=== PATIENT | female | born 1940 | race Caucasian/White ===

== ENCOUNTER 2018-01-12 12:04 | Inpatient (IN) | payer MEDICARE ==
[~2018-01-12] VITALS: Ht 154.9 cm; Wt 77.1 kg
[~2018-01-12 12:04] MED LIST: ALEN70TA47 PO; CLOP75TA14 PO; FERR324T10 PO; HYDR-2132 PO; LEVO100 PO; METF500T6 PO; METO-408 PO; OMEP20CA10 PO; PRAV10TA39 PO; TYLENOL ARTHRITIS PO; VERA240SR PO
[2018-01-12 12:48] LABS: BASOPHILS % (AUTO) 0.8 % (0.0-5.0); EOSINOPHILS % (AUTO) 2.2 % (0.0-8.0); HEMATOCRIT 25.3 % (36-48); LYMPHOCYTES % (AUTO) 23.3 % (21.0-51.0); MEAN CORPUSCULAR HEMOGLOBIN 28.9 pg (27.0-33.0); MEAN CORPUSCULAR VOLUME 84.8 fL (79-99); MONOCYTES % (AUTO) 9.8 % (3.0-13.0); NEUTROPHILS % (AUTO) 63.9 % (40.0-77.0); NUCLEATED RED BLOOD CELLS 0.1 % (0.0-0.19); PLATELET COUNT (AUTO) 335 K/uL (130-400); RED BLOOD CELL COUNT(AUTO) 2.98 MIL/uL (4.00-5.50); RED CELL DISTRIBUTION WIDTH 14.8 % (11.0-15.5); WHITE BLOOD COUNT (AUTO) 8.6 K/uL (4.8-10.8)
[2018-01-12 12:57] LABS: INR 0.98 (0.85-1.15); PARTIAL THROMBOPLASTIN TIME 22.2 SEC (26.3-35.5); PROTHROMBIN TIME 10.3 SEC (9.6-11.6)
[2018-01-12 12:58] LABS: CREATININE 0.7 mg/dL (0.5-1.5); POTASSIUM 4.7 mmol/L (3.5-5.1)
[2018-01-12 13:04] LABS: ALBUMIN 3.4 g/dL (3.5-5.0); BILIRUBIN,TOTAL 0.4 mg/dL (0.2-1.0); TOTAL PROTEIN, SERUM 6.3 g/dL (6.0-8.3)
[2018-01-12] MEDS ORDERED: ONDANSETRON HCL MDV 20ML 2 MG/ML VIAL ONE (14:15)
[2018-01-12] MEDS ORDERED: SODIUM CHLORIDE 0.9% 1000ML 1,000 ML IV ONE ×2 (14:15→17:39)
[2018-01-12] MEDS ORDERED: LACTULOSE 20 GM/30 ML UDCUP PO PRN (15:15)
[2018-01-12] MEDS ORDERED: HYDRALAZINE HCL 20 MG/ML VIAL IV PRN (15:15)
[2018-01-12] MEDS ORDERED: ACETAMINOPHEN 325 MG TAB PO PRN (15:15)
[2018-01-12] MEDS ORDERED: GUAIFENESIN-DM 200/20 MG 10 ML PO PRN (15:15)
[2018-01-12] MEDS ORDERED: METOPROLOL TARTRATE 1 MG/ML 5ML VIAL IV PRN (15:15)
[2018-01-12] MEDS ORDERED: LACTULOSE 20 GM/30 ML UDCUP ONE (17:38)
[2018-01-12] MEDS ORDERED: SODIUM CHLORIDE 0.9% 100 ML IV ONE (17:38)
[2018-01-12] MEDS ORDERED: LEVOFLOXACIN 500 MG/D5W 100 ML 100 ML ONE (17:40)
[2018-01-12 18:15] VITALS: BP 145/67
[2018-01-12] MEDS: LEVOFLOXACIN 500 MG/D5W 100 ML 100 ML IV SCH (18:41)
[2018-01-12] MEDS: SODIUM CHLORIDE 0.9% 1000ML 1,000 ML IV SCH (18:42)
[2018-01-12] MEDS ORDERED: LACTULOSE 20 GM/30 ML UDCUP PO SCH (19:00)
[2018-01-12] MEDS ORDERED: MAGNESIUM CITRATE 296 ML SOLUTION PO SCH (19:00)
[2018-01-12] MEDS ORDERED: PEG 3350/NA SULF,BICARB,CL/KCL 4000 ML SOLN PO SCH (19:00)
[2018-01-12] MEDS ORDERED: PANTOPRAZOLE 40 MG/VIAL IVP SCH (19:00)
[2018-01-12 20:00] VITALS: BP 125/76
[2018-01-12] MEDS ORDERED: CETI10CA5 PO (20:12)
[2018-01-12] MEDS ORDERED: CHOL200074 PO (20:12)
[2018-01-12] MEDS ORDERED: CARB1TAB20 PO (20:12)
[2018-01-12] MEDS ORDERED: CYAN10009 PO (20:12)
[2018-01-12] MEDS ORDERED: NAPR-1023 PO (20:12)
[2018-01-12] MEDS ORDERED: GLUC-208 PO (20:12)
[2018-01-12] MEDS ORDERED: PANTOPRAZOLE SODIUM 40 MG TABLET.DR PO SCH (21:00)
[2018-01-12] MEDS: PANTOPRAZOLE SODIUM 80 MG in NS 100ML IVP SCH (21:04)
[2018-01-12] MEDS: ONDANSETRON HCL MDV 20ML 2 MG/ML VIAL IV PRN (21:26)
[2018-01-13] VITALS: BP 125/68
[2018-01-13] MEDS: SODIUM CHLORIDE 0.9% 1000ML 1,000 ML IV SCH ×3 (01:15→21:15)
[2018-01-13 04:00] VITALS: BP 122/66
[2018-01-13 05:17] LABS: HEMATOCRIT 23.7 % (36-48); MEAN CORPUSCULAR HEMOGLOBIN 29.7 pg (27.0-33.0); MEAN CORPUSCULAR HGB CONC 34.8 g/dL (32.0-36.0); MEAN CORPUSCULAR VOLUME 85.4 fL (79-99); NUCLEATED RED BLOOD CELLS 0.1 % (0.0-0.19); PLATELET COUNT (AUTO) 312 K/uL (130-400); RED BLOOD CELL COUNT(AUTO) 2.77 MIL/uL (4.00-5.50); RED CELL DISTRIBUTION WIDTH 14.8 % (11.0-15.5); WHITE BLOOD COUNT (AUTO) 7.4 K/uL (4.8-10.8)
[2018-01-13] MEDS: PANTOPRAZOLE SODIUM 80 MG in NS 100ML IVP SCH (05:17)
[2018-01-13 05:19] LABS: CREATININE 0.7 mg/dL (0.5-1.5); POTASSIUM 3.8 mmol/L (3.5-5.1)
[2018-01-13 07:30] VITALS: BP 117/56
[2018-01-13] MEDS: METFORMIN HCL 500 MG TABLET PO SCH ×2 (07:30→17:02)
[2018-01-13] MEDS: LEVOTHYROXINE 100 MCG TABLET PO SCH (07:30)
[2018-01-13] MEDS: GLUCOSAMINE-CHONDROITIN PO SCH (08:56)
[2018-01-13] MEDS: **HM** TOPROL XL 25MG PO SCH (08:57)
[2018-01-13] MEDS: **HM** VIT D3 1000 UNITS PO SCH (08:57)
[2018-01-13] MEDS: CARBIDOPA-LEVODOPA 25-100 TAB PO SCH ×2 (08:57→21:18)
[2018-01-13] MEDS ORDERED: METOPROLOL TARTRATE 25 MG TAB PO SCH ×2 (09:00→16:30)
[2018-01-13] MEDS ORDERED: CETIRIZINE HCL 5 MG TABLET PO PRN (09:00)
[2018-01-13 10:14] LABS: APPEARANCE,URINE Turbid (CLEAR); BILIRUBIN,URINE Negative (NEGATIVE); COLOR,URINE Yellow (YELLOW); GLUCOSE, URINE (UA) Negative (NEGATIVE); KETONES,URINE 15 mg/dL (NEGATIVE); LEUKOCYTE ESTERASE ,URINE Small (NEGATIVE); NITRATE,URINE Negative (NEGATIVE); OCCULT BLOOD,URINE Negative (NEGATIVE); PH,URINE 8.5 (5.0-8.0); PROTEIN,URINE Negative (NEGATIVE)
[2018-01-13] MEDS ORDERED: DEXTROSE 50%-WATER 50 ML DISP.SYRIN IV PRN (10:15)
[2018-01-13] MEDS ORDERED: GLUCAGON 1MG KIT 1 MG ML IM PRN (10:15)
[2018-01-13 10:19] LABS: BACTERIA,URINE Rare /HPF (None Seen); RBC,URINE 0-1 /HPF (0-1); SQUAMOUS EPITHELIAL CELL,UR Rare /HPF (0-2)
[2018-01-13 10:40] LABS: CREATINE KINASE MB 0.8 ng/mL (0.5-3.6); MYOGLOBIN 62 ng/mL (10-92); TROPONIN I < 0.04 ng/mL (0.00-0.06)
[2018-01-13 10:49] LABS: CREATINE KINASE, TOTAL 401 U/L (21-232)
[2018-01-13] MEDS: INSULIN HUMULIN R 100 UNIT/ML 3ML SQ SCH ×3 (11:30→21:00)
[2018-01-13 11:37] VITALS: BP 142/65
[2018-01-13] MEDS: METOPROLOL TARTRATE 25 MG TAB PO SCH ×2 (15:19→21:18)
[2018-01-13] MEDS: LEVOFLOXACIN 500 MG/D5W 100 ML 100 ML IV SCH (15:19)
[2018-01-13 16:15] VITALS: BP 120/64
[2018-01-13] MEDS ORDERED: MAGNESIUM CITRATE 296 ML SOLUTION PO SCH (18:00)
[2018-01-13 19:00] VITALS: BP 136/63
[2018-01-13] MEDS: **HM** PRAVASTATIN 10MG PO SCH (21:00)
[2018-01-13] MEDS ORDERED: NON-FORMULARY MEDICATION 1 EACH (Omeprazole 20 MG) PO SCH (21:00)
[2018-01-13] MEDS: ONDANSETRON HCL MDV 20ML 2 MG/ML VIAL IV PRN (23:24)
[2018-01-14] VITALS (20 sets, daily range): BP systolic 102–161; BP diastolic 47–84
[2018-01-14] MEDS: LEVOTHYROXINE 100 MCG TABLET PO SCH (05:06)
[2018-01-14] MEDS: METFORMIN HCL 500 MG TABLET PO SCH ×2 (05:06→16:30)
[2018-01-14] MEDS: SODIUM CHLORIDE 0.9% 1000ML 1,000 ML IV SCH ×2 (05:06→18:12)
[2018-01-14 06:03] LABS: HEMATOCRIT 23.3 % (36-48); MEAN CORPUSCULAR HEMOGLOBIN 28.5 pg (27.0-33.0); MEAN CORPUSCULAR HGB CONC 33.5 g/dL (32.0-36.0); NUCLEATED RED BLOOD CELLS 0.1 % (0.0-0.19); PLATELET COUNT (AUTO) 303 K/uL (130-400); RED BLOOD CELL COUNT(AUTO) 2.74 MIL/uL (4.00-5.50); RED CELL DISTRIBUTION WIDTH 14.6 % (11.0-15.5)
[2018-01-14 06:13] LABS: CREATININE 0.5 mg/dL (0.5-1.5); POTASSIUM 3.5 mmol/L (3.5-5.1)
[2018-01-14] MEDS: INSULIN HUMULIN R 100 UNIT/ML 3ML SQ SCH ×4 (06:44→21:00)
[2018-01-14] MEDS: **HM** TOPROL XL 25MG PO SCH (07:09)
[2018-01-14] MEDS: CARBIDOPA-LEVODOPA 25-100 TAB PO SCH ×2 (09:00→20:21)
[2018-01-14] MEDS: **HM** VIT D3 1000 UNITS PO SCH (09:00)
[2018-01-14] MEDS ORDERED: LIDOCAINE HCL 2% 20ML ONE (14:08)
[2018-01-14] MEDS ORDERED: PROPOFOL 10 MG/ML 20ML VIAL IV ONE (14:08)
[2018-01-14] MEDS: GLUCOSAMINE-CHONDROITIN PO SCH (18:11)
[2018-01-14] MEDS: LEVOFLOXACIN 500 MG/D5W 100 ML 100 ML IV SCH (18:12)
[2018-01-14] MEDS: **HM** PRAVASTATIN 10MG PO SCH (20:14)
[2018-01-14] MEDS: ONDANSETRON HCL MDV 20ML 2 MG/ML VIAL IV PRN (20:21)
[2018-01-14] MEDS: HEMORRHOIDAL OINTMENT 57 GM CREAM.GM. RC SCH (22:43)
[2018-01-15] VITALS (25 sets, daily range): BP systolic 102–157; BP diastolic 58–82
[2018-01-15] MEDS: SODIUM CHLORIDE 0.9% 1000ML 1,000 ML IV SCH ×3 (03:15→23:46)
[2018-01-15 05:36] LABS: BASOPHILS % (AUTO) 0.5 % (0.0-5.0); EOSINOPHILS % (AUTO) 3.7 % (0.0-8.0); HEMATOCRIT 22.1 % (36-48); MEAN CORPUSCULAR HGB CONC 34.2 g/dL (32.0-36.0); MEAN CORPUSCULAR VOLUME 84.8 fL (79-99); MONOCYTES % (AUTO) 13.2 % (3.0-13.0); NEUTROPHILS % (AUTO) 50.6 % (40.0-77.0); NUCLEATED RED BLOOD CELLS 0.2 % (0.0-0.19); PLATELET COUNT (AUTO) 301 K/uL (130-400); RED BLOOD CELL COUNT(AUTO) 2.61 MIL/uL (4.00-5.50); RED CELL DISTRIBUTION WIDTH 14.8 % (11.0-15.5); WHITE BLOOD COUNT (AUTO) 6.4 K/uL (4.8-10.8)
[2018-01-15 05:49] LABS: CREATININE 0.6 mg/dL (0.5-1.5); POTASSIUM 3.7 mmol/L (3.5-5.1)
[2018-01-15] MEDS: INSULIN HUMULIN R 100 UNIT/ML 3ML SQ SCH ×4 (06:50→21:00)
[2018-01-15] MEDS: LEVOTHYROXINE 100 MCG TABLET PO SCH (06:50)
[2018-01-15] MEDS: METFORMIN HCL 500 MG TABLET PO SCH ×2 (06:50→16:30)
[2018-01-15] MEDS: **HM** VIT D3 1000 UNITS PO SCH (08:40)
[2018-01-15] MEDS: GLUCOSAMINE-CHONDROITIN PO SCH (08:43)
[2018-01-15] MEDS: HEMORRHOIDAL OINTMENT 57 GM CREAM.GM. RC SCH ×2 (08:44→21:16)
[2018-01-15] MEDS: **HM** TOPROL XL 25MG PO SCH (08:48)
[2018-01-15] MEDS: CARBIDOPA-LEVODOPA 25-100 TAB PO SCH ×2 (09:00→21:15)
[2018-01-15] MEDS: METOPROLOL TARTRATE 25 MG TAB PO SCH ×2 (09:00→21:15)
[2018-01-15] MEDS ORDERED: METOPROLOL TARTRATE 25 MG TAB PO SCH (09:00)
[2018-01-15 10:24] LABS: RETICULOCYTE % (AUTO) 3.11 % (0.42-2.23)
[2018-01-15 11:05] LABS: % IRON SATURATION 5.4 % (22-44); FERRITIN 8 ng/mL (15-150); IRON, SERUM 17 mcg/dL (50-170); TOTAL IRON BINDING CAPACITY 314 mcg/dL (250-450)
[2018-01-15] MEDS ORDERED: PROPOFOL 10 MG/ML 20ML VIAL IV ONE (13:06)
[2018-01-15] MEDS: PANTOPRAZOLE SODIUM 40 MG TABLET.DR PO SCH (17:00)
[2018-01-15] MEDS: LEVOFLOXACIN 500 MG/D5W 100 ML 100 ML IV SCH (17:00)
[2018-01-15] MEDS ORDERED: ZOLPIDEM TARTRATE 5 MG TAB PO PRN (20:45)
[2018-01-15] MEDS: **HM** PRAVASTATIN 10MG PO SCH (21:00)
[2018-01-16] VITALS: BP 146/60
[2018-01-16 04:00] VITALS: BP 156/63
[2018-01-16 05:47] LABS: BASOPHILS % (AUTO) 0.7 % (0.0-5.0); HEMATOCRIT 22.9 % (36-48); LYMPHOCYTES % (AUTO) 28.4 % (21.0-51.0); MEAN CORPUSCULAR HEMOGLOBIN 28.4 pg (27.0-33.0); MEAN CORPUSCULAR HGB CONC 33.8 g/dL (32.0-36.0); MONOCYTES % (AUTO) 13.1 % (3.0-13.0); NEUTROPHILS % (AUTO) 53.8 % (40.0-77.0); NUCLEATED RED BLOOD CELLS 0.2 % (0.0-0.19); PLATELET COUNT (AUTO) 336 K/uL (130-400); RED BLOOD CELL COUNT(AUTO) 2.73 MIL/uL (4.00-5.50); RED CELL DISTRIBUTION WIDTH 14.8 % (11.0-15.5); WHITE BLOOD COUNT (AUTO) 7.2 K/uL (4.8-10.8)
[2018-01-16 06:18] LABS: CREATININE 0.6 mg/dL (0.5-1.5); POTASSIUM 3.6 mmol/L (3.5-5.1)
[2018-01-16] MEDS: LEVOTHYROXINE 100 MCG TABLET PO SCH (06:21)
[2018-01-16] MEDS: INSULIN HUMULIN R 100 UNIT/ML 3ML SQ SCH ×3 (06:21→16:20)
[2018-01-16] MEDS: METFORMIN HCL 500 MG TABLET PO SCH ×2 (06:21→15:06)
[2018-01-16 07:55] VITALS: BP 157/74
[2018-01-16] MEDS: **HM** VIT D3 1000 UNITS PO SCH (09:00)
[2018-01-16] MEDS: SODIUM CHLORIDE 0.9% 1000ML 1,000 ML IV SCH (09:15)
[2018-01-16] MEDS: PANTOPRAZOLE SODIUM 40 MG TABLET.DR PO SCH (09:47)
[2018-01-16] MEDS: GLUCOSAMINE-CHONDROITIN PO SCH (09:47)
[2018-01-16] MEDS: CARBIDOPA-LEVODOPA 25-100 TAB PO SCH (09:47)
[2018-01-16] MEDS: METOPROLOL TARTRATE 25 MG TAB PO SCH (09:47)
[2018-01-16] MEDS: HEMORRHOIDAL OINTMENT 57 GM CREAM.GM. RC SCH (09:48)
[2018-01-16 11:37] VITALS: BP 145/59
[2018-01-16] MEDS: LEVOFLOXACIN 500 MG/D5W 100 ML 100 ML IV SCH (15:05)
[2018-01-16 16:14] VITALS: BP 131/60
== END 2018-01-16 18:44 | disposition home or self-care (01) | DRG 378 ==
LOC: EDH 12:04 → EDHIP 15:15 → 4BH 18:15
PROVIDERS: ADMIT Family Medicine; ATTEND Family Medicine
PROC: 0DJD8ZZ Inspection of Lower Intestinal Tract, Via Natural or Artificial Opening Endoscopic (ICD-10-PCS; principal; 2018-01-15)
PROC: 0DJ08ZZ Inspection of Upper Intestinal Tract, Via Natural or Artificial Opening Endoscopic (ICD-10-PCS; 2018-01-15)
PROC: 0DJD8ZZ Inspection of Lower Intestinal Tract, Via Natural or Artificial Opening Endoscopic (ICD-10-PCS; 2018-01-15)
PROC: 0DB68ZZ Excision of Stomach, Via Natural or Artificial Opening Endoscopic (ICD-10-PCS; 2018-01-15)
DX: K92.2 Gastrointestinal hemorrhage, unspecified (principal); D62 Acute posthemorrhagic anemia; G20 Parkinson's disease; I48.0 Paroxysmal atrial fibrillation; I47.1 Supraventricular tachycardia; M62.82 Rhabdomyolysis; N39.0 Urinary tract infection, site not specified; E11.9 Type 2 diabetes mellitus without complications; I10 Essential (primary) hypertension; E03.9 Hypothyroidism, unspecified; G47.00 Insomnia, unspecified; E53.8 Deficiency of other specified B group vitamins; E78.5 Hyperlipidemia, unspecified; I49.9 Cardiac arrhythmia, unspecified; K21.9 Gastro-esophageal reflux disease without esophagitis; L40.9 Psoriasis, unspecified; L71.9 Rosacea, unspecified; M19.90 Unspecified osteoarthritis, unspecified site; Z96.652 Presence of left artificial knee joint; K63.5 Polyp of colon; K64.8 Other hemorrhoids; K20.9 Esophagitis, unspecified; Z88.8 Allergy status to other drugs, medicaments and biological substances; Z90.710 Acquired absence of both cervix and uterus; Z85.828 Personal history of other malignant neoplasm of skin; Z80.8 Family history of malignant neoplasm of other organs or systems; Z82.49 Family history of ischemic heart disease and other diseases of the circulatory system; Z83.3 Family history of diabetes mellitus
CPT/HCPCS: 36415; 71045; 80048; 80053; 81001; 82270; 82550; 82553; 82607; 82728; 82746; 82948; 83735; 83874; 84484; 85025; 85027; 85610; 85730; 86677; 86850; 86900; 86901; 87088; 87633; 88305; 88312; 93005; C9113; J1956; J2704; J3490; J7030

== ENCOUNTER 2018-02-11 17:07 | Emergency (ER) | payer MEDICARE ==
[~2018-02-11 17:07] MED LIST changes: -ALEN70TA47 PO; +CARB1TAB20 PO; +CETI10CA5 PO; +CHOL200074 PO; -CLOP75TA14 PO; +CYAN10009 PO; -FERR324T10 PO; +GLUC-208 PO; -HYDR-2132 PO; -TYLENOL ARTHRITIS PO; -VERA240SR PO
[2018-02-11 17:41] LABS: BASOPHILS % (AUTO) 0.8 % (0.0-5.0); EOSINOPHILS % (AUTO) 3.4 % (0.0-8.0); HEMATOCRIT 29.2 % (36-48); LYMPHOCYTES % (AUTO) 30.9 % (21.0-51.0); MEAN CORPUSCULAR HEMOGLOBIN 26.2 pg (27.0-33.0); MEAN CORPUSCULAR HGB CONC 32.2 g/dL (32.0-36.0); MEAN CORPUSCULAR VOLUME 81.5 fL (79-99); MONOCYTES % (AUTO) 12.2 % (3.0-13.0); NEUTROPHILS % (AUTO) 52.7 % (40.0-77.0); NUCLEATED RED BLOOD CELLS 0.1 % (0.0-0.19); PLATELET COUNT (AUTO) 437 K/uL (130-400); RED BLOOD CELL COUNT(AUTO) 3.59 MIL/uL (4.00-5.50); RED CELL DISTRIBUTION WIDTH 16.6 % (11.0-15.5); WHITE BLOOD COUNT (AUTO) 7.3 K/uL (4.8-10.8)
[2018-02-11 17:53] LABS: INR 1.01 (0.85-1.15); PARTIAL THROMBOPLASTIN TIME 23.1 SEC (26.3-35.5); PROTHROMBIN TIME 10.6 SEC (9.6-11.6)
[2018-02-11 18:09] LABS: CREATININE 0.7 mg/dL (0.5-1.5)
[2018-02-11 18:14] LABS: ALBUMIN 3.7 g/dL (3.5-5.0); BILIRUBIN,TOTAL 0.3 mg/dL (0.2-1.0); TOTAL PROTEIN, SERUM 6.8 g/dL (6.0-8.3)
[2018-02-11 18:32] LABS: B-TYPE NATRIURETIC PEPTIDE 122 pg/mL (0-100)
== END 2018-02-11 21:38 | disposition home or self-care (01) ==
LOC: EDH 17:07
DX: D64.9 Anemia, unspecified (principal); R00.0 Tachycardia, unspecified; E11.9 Type 2 diabetes mellitus without complications; E07.9 Disorder of thyroid, unspecified; Z88.6 Allergy status to analgesic agent
CPT/HCPCS: 36415; 71045; 80053; 82550; 83880; 84484; 85025; 85610; 85730; 86850; 86900; 86901; 93005; 94761; 96360

== ENCOUNTER 2018-07-08 16:17 | Inpatient (IN) | payer MEDICARE ==
[~2018-07-08] VITALS: Ht 154.9 cm; Wt 76.7 kg
[~2018-07-08 16:17] MED LIST changes: -CARB1TAB20 PO; +CARB1TAB42 PO; +CELE-84 PO; -CETI10CA5 PO; +FERR325T22 PO; +FOLI0.8C PO; -GLUC-208 PO; -LEVO100 PO; +LEVO88TA7 PO; +METF-444 PO; -METF500T6 PO
[2018-07-08 17:03] LABS: BASOPHILS % (AUTO) 0.7 % (0.0-5.0); EOSINOPHILS % (AUTO) 1.7 % (0.0-8.0); HEMATOCRIT 38.6 % (36-48); LYMPHOCYTES % (AUTO) 30.8 % (21.0-51.0); MEAN CORPUSCULAR HGB CONC 33.2 g/dL (32.0-36.0); MEAN CORPUSCULAR VOLUME 90.1 fL (79-99); MONOCYTES % (AUTO) 10.1 % (3.0-13.0); NEUTROPHILS % (AUTO) 56.7 % (40.0-77.0); PLATELET COUNT (AUTO) 269 K/uL (130-400); RED BLOOD CELL COUNT(AUTO) 4.28 MIL/uL (4.00-5.50); RED CELL DISTRIBUTION WIDTH 14.4 % (11.0-15.5); WHITE BLOOD COUNT (AUTO) 8.4 K/uL (4.8-10.8)
[2018-07-08 17:16] LABS: CREATININE 0.7 mg/dL (0.5-1.5); POTASSIUM 4.2 mmol/L (3.5-5.1)
[2018-07-08 17:20] LABS: INR 0.98 (0.85-1.15); PARTIAL THROMBOPLASTIN TIME 25.7 SEC (26.3-35.5); PROTHROMBIN TIME 10.3 SEC (9.6-11.6)
[2018-07-08 17:22] LABS: ALBUMIN 3.7 g/dL (3.5-5.0); BILIRUBIN,DIRECT 0.1 mg/dL (0.0-0.3); BILIRUBIN,TOTAL 0.5 mg/dL (0.2-1.0)
[2018-07-08] MEDS ORDERED: MAGNESIUM 2GM PREMIX 50ML 50 ML IV PRN (19:45)
[2018-07-08] MEDS ORDERED: POTASSIUM CHLORIDE 20MEQ/100ML 100 ML IV PRN (19:45)
[2018-07-08] MEDS ORDERED: POTASSIUM CHLORIDE 20 MEQ ERTAB PO PRN (19:45)
[2018-07-08] MEDS ORDERED: POTASSIUM CHLORIDE 10% ELIXIR 20 MEQ/15 ML UDCUP PO PRN (19:45)
[2018-07-08 19:56] LABS: HEMOGLOBIN A1C 6.2 % (4.0-6.0)
[2018-07-08 20:00] VITALS: BP 125/63
[2018-07-08] MEDS ORDERED: DEXTROSE 50%-WATER 50 ML DISP.SYRIN IV PRN (21:00)
[2018-07-08] MEDS ORDERED: ACETAMINOPHEN 325 MG TAB PO PRN (21:00)
[2018-07-08] MEDS ORDERED: ONDANSETRON HCL 4 MG/2 ML VIAL IV PRN (21:00)
[2018-07-08] MEDS ORDERED: GLUCAGON 1MG KIT 1 MG ML IM PRN (21:00)
[2018-07-08] MEDS: INSULIN HUMULIN R 100 UNIT/ML 3ML SQ SCH (21:00)
[2018-07-08] MEDS: SODIUM CHLORIDE 0.9% 1000ML 1,000 ML IV SCH (22:07)
[2018-07-08] MEDS ORDERED: METOPROLOL TARTRATE 25 MG TAB PO ONE (22:45)
[2018-07-08 23:17] LABS: APPEARANCE,URINE Clear (CLEAR); BILIRUBIN,URINE Negative (NEGATIVE); COLOR,URINE Yellow (YELLOW); GLUCOSE, URINE (UA) Negative (NEGATIVE); KETONES,URINE Negative (NEGATIVE); LEUKOCYTE ESTERASE ,URINE Small (NEGATIVE); NITRATE,URINE Negative (NEGATIVE); OCCULT BLOOD,URINE Negative (NEGATIVE); PROTEIN,URINE Negative (NEGATIVE); UROBILINOGEN,URINE 0.2 mg/dL (0.2-1.0)
[2018-07-08 23:24] LABS: AMPHET/METH SCREEN,URINE NEGATIVE (NEGATIVE); BARBITURATE SCREEN, URINE NEGATIVE (NEGATIVE); BENZODIAZEPINES SCREEN,URINE NEGATIVE (NEGATIVE); CANNABINOID SCREEN,URINE NEGATIVE (NEGATIVE); COCAINE SCREEN,URINE NEGATIVE (NEGATIVE); OPIATE SCREEN,URINE NEGATIVE (NEGATIVE); PHENCYCLIDINE SCREEN,URINE NEGATIVE (NEGATIVE)
[2018-07-08 23:28] LABS: BACTERIA,URINE None Seen /HPF (None Seen); MUCUS,URINE Rare LPF (None Seen); RBC,URINE None Seen /HPF (0-1); SQUAMOUS EPITHELIAL CELL,UR Few /HPF (0-2)
[2018-07-08 23:40] LABS: CREATINE KINASE, TOTAL 301 U/L (21-232); MYOGLOBIN 29 ng/mL (10-92); TROPONIN I < 0.04 ng/mL (0.00-0.06)
[2018-07-08 23:50] VITALS: BP 125/70
[2018-07-09] MEDS ORDERED: LEVOFLOXACIN 500 MG/D5W 100 ML 100 ML IV SCH ×2 (02:00)
[2018-07-09 03:34] VITALS: BP 133/64
[2018-07-09 04:45] LABS: BASOPHILS % (AUTO) 0.5 % (0.0-5.0); EOSINOPHILS % (AUTO) 2.1 % (0.0-8.0); LYMPHOCYTES % (AUTO) 33.9 % (21.0-51.0); MEAN CORPUSCULAR HEMOGLOBIN 30.7 pg (27.0-33.0); MEAN CORPUSCULAR HGB CONC 33.9 g/dL (32.0-36.0); MEAN CORPUSCULAR VOLUME 90.5 fL (79-99); MONOCYTES % (AUTO) 11.7 % (3.0-13.0); NEUTROPHILS % (AUTO) 51.8 % (40.0-77.0); PLATELET COUNT (AUTO) 270 K/uL (130-400); RED BLOOD CELL COUNT(AUTO) 3.97 MIL/uL (4.00-5.50); RED CELL DISTRIBUTION WIDTH 14.3 % (11.0-15.5); WHITE BLOOD COUNT (AUTO) 7.6 K/uL (4.8-10.8)
[2018-07-09 05:06] LABS: CREATINE KINASE, TOTAL 261 U/L (21-232); MYOGLOBIN 26 ng/mL (10-92); TROPONIN I < 0.04 ng/mL (0.00-0.06)
[2018-07-09 05:07] LABS: POTASSIUM 3.9 mmol/L (3.5-5.1)
[2018-07-09 05:08] LABS: BILIRUBIN,TOTAL 0.5 mg/dL (0.2-1.0); CREATININE 0.6 mg/dL (0.5-1.5)
[2018-07-09 05:09] LABS: ALBUMIN 3.1 g/dL (3.5-5.0)
[2018-07-09 05:14] LABS: MAGNESIUM 2.3 mg/dL (1.80-2.40)
[2018-07-09] MEDS ORDERED: LEVOTHYROXINE 88 MCG TABLET ONE (05:44)
[2018-07-09] MEDS: LEVOTHYROXINE 88 MCG TABLET PO SCH (05:49)
[2018-07-09] MEDS: METFORMIN HCL 500 MG TABLET PO SCH ×3 (05:51→17:29)
[2018-07-09] MEDS: INSULIN HUMULIN R 100 UNIT/ML 3ML SQ SCH ×4 (05:51→21:00)
[2018-07-09] MEDS: SODIUM CHLORIDE 0.9% 1000ML 1,000 ML IV SCH ×2 (06:58→20:57)
[2018-07-09 07:00] VITALS: BP 130/69
[2018-07-09] MEDS: CHOLECALCIFEROL 1000 UNIT PO SCH (09:00)
[2018-07-09] MEDS ORDERED: ***HM***Metoprolol Succinate 25 MG PO SCH (09:00)
[2018-07-09] MEDS: CELECOXIB 200 MG CAP PO SCH ×2 (09:55→21:01)
[2018-07-09] MEDS: FOLIC ACID 1 MG TABLET PO SCH (09:55)
[2018-07-09] MEDS: CARBIDOPA/LEVODOPA ER 50-200 1 EACH TABLET.ER PO SCH ×2 (09:55→21:01)
[2018-07-09] MEDS: PANTOPRAZOLE SODIUM 40 MG TABLET.DR PO SCH (09:56)
[2018-07-09] MEDS: FERROUS SULFATE 325 MG TABLET.DR PO SCH ×2 (09:56→21:01)
[2018-07-09 11:00] VITALS: BP 125/76
[2018-07-09 16:00] VITALS: BP 136/70
[2018-07-09 19:56] VITALS: BP 116/58
[2018-07-09] MEDS ORDERED: ***HM***Pravastatin Sodium 10 MG PO SCH (21:00)
[2018-07-09] MEDS ORDERED: PANTOPRAZOLE SODIUM 40 MG TABLET.DR PO SCH (21:00)
[2018-07-09] MEDS: METOPROLOL TARTRATE 25 MG TAB PO SCH (21:02)
[2018-07-09 23:44] VITALS: BP 141/68
[2018-07-10 03:55] VITALS: BP 139/82
[2018-07-10] MEDS: LEVOTHYROXINE 88 MCG TABLET PO SCH (06:37)
[2018-07-10] MEDS: INSULIN HUMULIN R 100 UNIT/ML 3ML SQ SCH (06:37)
[2018-07-10 07:00] VITALS: BP 156/72
[2018-07-10] MEDS: METFORMIN HCL 500 MG TABLET PO SCH (08:27)
[2018-07-10] MEDS ORDERED: METO-408 PO (08:50)
[2018-07-10] MEDS ORDERED: LEVO75TA10 PO (08:50)
[2018-07-10] MEDS ORDERED: ***HM***Metoprolol Succinate 25 MG PO SCH (08:57)
[2018-07-10] MEDS: METOPROLOL TARTRATE 25 MG TAB PO SCH (09:00)
[2018-07-10] MEDS: CHOLECALCIFEROL 1000 UNIT PO SCH (09:00)
[2018-07-10] MEDS: FOLIC ACID 1 MG TABLET PO SCH (09:43)
[2018-07-10] MEDS: PANTOPRAZOLE SODIUM 40 MG TABLET.DR PO SCH (09:43)
[2018-07-10] MEDS: CELECOXIB 200 MG CAP PO SCH (09:43)
[2018-07-10] MEDS: FERROUS SULFATE 325 MG TABLET.DR PO SCH (09:43)
[2018-07-10] MEDS: CARBIDOPA/LEVODOPA ER 50-200 1 EACH TABLET.ER PO SCH (09:43)
== END 2018-07-10 10:50 | disposition home or self-care (01) | DRG 310 ==
LOC: EDH 16:17 → 2AH 18:24
PROVIDERS: ADMIT Internal Medicine; ATTEND Internal Medicine
DX: I47.1 Supraventricular tachycardia (principal); I49.1 Atrial premature depolarization; I49.3 Ventricular premature depolarization; I10 Essential (primary) hypertension; I25.10 Atherosclerotic heart disease of native coronary artery without angina pectoris; E11.9 Type 2 diabetes mellitus without complications; E05.80 Other thyrotoxicosis without thyrotoxic crisis or storm; T38.1X5A Adverse effect of thyroid hormones and substitutes, initial encounter; E66.9 Obesity, unspecified; M19.90 Unspecified osteoarthritis, unspecified site; E05.90 Thyrotoxicosis, unspecified without thyrotoxic crisis or storm; G20 Parkinson's disease; I48.0 Paroxysmal atrial fibrillation; Y92.89 Other specified places as the place of occurrence of the external cause; Z80.8 Family history of malignant neoplasm of other organs or systems; Z82.3 Family history of stroke; Z82.49 Family history of ischemic heart disease and other diseases of the circulatory system; Z83.3 Family history of diabetes mellitus; Z90.710 Acquired absence of both cervix and uterus; Z88.4 Allergy status to anesthetic agent; Z88.8 Allergy status to other drugs, medicaments and biological substances; Z79.899 Other long term (current) drug therapy; Z79.84 Long term (current) use of oral hypoglycemic drugs; Z68.32 Body mass index [BMI] 32.0-32.9, adult
CPT/HCPCS: 36415; 71045; 80048; 80053; 80061; 80076; 80305; 81001; 82550; 82948; 83036; 83735; 83874; 84443; 84484; 85025; 85610; 85730; 87088; 93005; J1956; J2405; J3475; J7030